=== PATIENT | female | born 1950 | race Caucasian/White ===

== ENCOUNTER 2017-01-06 11:07 | Emergency (ER) | payer OTHER ==
[2017-01-06] MEDS ORDERED: Ibuprofen TAB* 600 MG PO ONE (11:43)
--- NOTE | 2017-01-06 11:58 | UC ---
FLU HPI - HPI Summary HPI Summary: worsened body aches chills and cough over the past 2 days-- - History of Current Complaint Chief Complaint: UCGeneralIllness Stated Complaint: COLD/CHILLS/ACHES Time Seen by Provider: 01/06/17 11:39 Hx Obtained From: Patient ?: No Onset/Duration: Sudden Onset, Lasting Days - 2, Worse Since - last night Severity Currently: Moderate Severity Initially: Moderate Pain Intensity: 7 Pain Scale Used: 0-10 Numeric Associated Signs & Symptoms: Positive: Fever, Myalgia, Cough, Headache Related Hx: Possible Flu/Infectious Exposure - works as a [employer] - Allergy/Home Medications Allergies/Adverse Reactions: Allergies Allergy/AdvReac Type Severity Reaction Status Date / Time No Known Allergies Allergy Verified 01/06/17 11:41 Home Medications: Home Medications Levothyroxine TAB* [Synthroid 25 MCG TAB*] 25 mcg PO DAILY 01/06/17 [History Confirmed 01/06/17] PMH/Surg Hx/FS Hx/Imm Hx Previously Healthy: Yes - Surgical History Surgical History: None - Family History Known Family History: Positive: None Family History: no reported cardio vascular issues in family lineage - Social History Occupation: Employed Full-time Lives: With Family Alcohol Use: Weekly Substance Use Type: None Smoking Status (MU): Light Every Day Tobacco Smoker Amount Used/How Often: 4-5 per day Length of Time of Smoking/Using Tobacco: 30 years Have You Smoked in the Last Year: Yes Cessation Counseling: Counseled 3+Min - 10 Min - Immunization History Most Recent Influenza Vaccination: no Review of Systems Constitutional: Fever, Chills, Fatigue Skin: Negative Eyes: Negative ENT: Negative Respiratory: Cough Cardiovascular: Negative Gastrointestinal: Negative Genitourinary: Negative Motor: Negative Neurovascular: Negative Musculoskeletal: Arthralgia, Myalgia Neurological: Headache Psychological: Negative All Other Systems Reviewed And Are Negative: Yes Physical Exam Triage Information Reviewed: Yes Appearance: Well-Nourished, Ill-Appearing - mild, Pain Distress - mild Vital Signs: Initial Vital Signs Temp 102.8 F 01/06/17 11:34 Pulse 95 01/06/17 11:34 Resp 18 01/06/17 11:34 BP 159/56 01/06/17 11:34 Pulse Ox 96 01/06/17 11:34 Vital Signs Reviewed: Yes Eye Exam: Normal Eyes: Positive: Conjunctiva Clear ENT Exam: Normal ENT: Positive: Normal ENT inspection, Hearing grossly normal, Pharynx normal, TMs normal. Negative: Nasal congestion, Nasal drainage, Tonsillar swelling, Tonsillar exudate, Trismus, Muffled/hoarse voice Dental Exam: Normal Neck exam: Normal Neck: Positive: Supple, Nontender, No Lymphadenopathy Respiratory Exam: Normal Respiratory: Positive: Chest non-tender, Lungs clear, Normal breath sounds, No respiratory distress, No accessory muscle use Cardiovascular Exam: Normal Cardiovascular: Positive: RRR, No Murmur, Pulses Normal, Brisk Capillary Refill Musculoskeletal Exam: Normal Musculoskeletal: Positive: Strength Intact, ROM Intact, No Edema Neurological Exam: Normal Neurological: Positive: Alert, Muscle Tone Normal Psychological Exam: Normal Skin Exam: Normal Diagnostics - Laboratory Diagnostic Studies Completed/Ordered: pathcy inflitrate right lung, blood in urine, influenza Neg Flu Course/Dx - Course Course Of Treatment: levoquin, increase fluids, tylenol, ibuprofen, follow with pcp 1-2 weeks, for elevated BP, Hematuria, nicotine dependence, and lung inflitrate - Differential Dx/Diagnosis Differential Diagnosis/HQI/PQRI: Pneumonia, RSV, Upper Respiratory Infection Provider Diagnoses: right lung inflitrate, hematuria, nicotine dependant, high blood pressure with out dx of hypertension Discharge - Discharge Plan Condition: Stable Disposition: HOME Prescriptions: Levofloxacin [Levaquin] 500 mg PO DAILY #10 tab Patient Education Materials: How to Stop Smoking (ED), Fever in Adults (ED), Cigarette Smoking and Your Health (GEN), Hematuria (ED), DASH Eating Plan (ED), Hypertension (ED), Pneumonia (ED) Forms: *Work Release Referrals: [facility] [Provider Group] - 2 Weeks No Primary Care Phys,NOPCP [Medical Doctor] -
--- NOTE | 2017-01-06 13:04 | RAD ---
HISTORY: Fever, cough COMPARISONS: None VIEWS: 2: Frontal dual-energy and lateral views of the chest. FINDINGS: CARDIOMEDIASTINAL SILHOUETTE: The cardiomediastinal silhouette is normal. ALEIDA: The aleida are normal. PLEURA: The costophrenic angles are sharp. No pleural abnormalities are noted. LUNG PARENCHYMA: There is calcified granuloma of the right midlung. There is patchy alveolar opacification of the right middle lobe. ABDOMEN: The upper abdomen is clear. There is no subphrenic gas. BONES AND SOFT TISSUES: No bone or soft tissue abnormalities are noted. OTHER: None. IMPRESSION: PATCHY AIRSPACE DISEASE OF THE RIGHT MIDDLE LOBE. RECOMMEND FOLLOW-UP UNTIL RESOLUTION TO EXCLUDE UNDERLYING PULMONARY PARENCHYMAL PATHOLOGY.
[2017-01-06 13:36] VITALS: BP 109/49
== END 2017-01-06 13:37 | disposition home or self-care (01) ==
LOC: UCCORT 11:07
DX: R91.8 Other nonspecific abnormal finding of lung field (principal); R31.9 Hematuria, unspecified; R03.0 Elevated blood-pressure reading, without diagnosis of hypertension; F17.210 Nicotine dependence, cigarettes, uncomplicated; Z71.6 Tobacco abuse counseling
CPT/HCPCS: 71020; 81003; 87086; 87502; 99202; A9270-GY; G0463